=== PATIENT | male | born 1985 | race Caucasian/White ===

== ENCOUNTER 2023-09-05 06:17 | Day surgery (SDC) | payer OTHER ==
[2023-09-04 10:17] VITALS: BMI 31.5
[2023-09-05 07:41] LABS: #Eosinphils 0.1 thou/uL (0.0-0.7); #Monocytes 0.3 thou/uL (0.11-0.59); #Neutrophils 3.2 thou/uL (1.40-6.50); %Basophils 0.9 % (0.0-1.0); %Eosinophils 3.1 % (0.0-10.0); %Lymphocytes 20.8 % (21.0-51.0); %Monocytes 6.1 % (0.0-10.0); %Neutrophils 68.9 % (42.0-75.0); Hematocrit 40.9 % (42.0-52.0); Hemoglobin 12.1 g/dL (14.0-18.0); Mean Corpuscular HGB CONC 29.6 g/dL (32.0-36.0); Mean Corpuscular Hemoglobin 21.5 pg (27.0-31.0); Mean Corpuscular Volume 72.5 fl (78.0-98.0); Platelet Count 148 10x3/uL (130-400); RBC Distribution Width 20.8 % (11.5-14.5); Red Blood Cell (RBC) Count 5.64 mill/uL (4.70-6.10); White Blood Cell (WBC) Count 4.6 10x3/uL (4.8-10.8)
[2023-09-05] MEDS ORDERED: Lidocaine 1% MPF 2 ML VIAL ONE (08:12)
[2023-09-05] MEDS ORDERED: CEFAZOLIN 2 GM VIAL ONE ×2 (08:12→12:32)
[2023-09-05] MEDS ORDERED: Sodium Chloride 0.9% 100 ML ONE ×2 (08:12→12:33)
[2023-09-05 08:13] LABS: Anisocytosis SLIGHT = 6-15 cells HPF (0-5); CellaVision Operator ID LAB.MJL; Hypochromia SLIGHT = 6-15 cells HPF (0-5); Microcytosis SLIGHT = 6-15 cells HPF (0-5); Ovalocytes SLIGHT = 2-5 cells HPF (0-1); Platelet Adequacy Comment Platelets Normal; Poikilocytosis SLIGHT = 6-15 cells HPF (0-5); Polychromasia SLIGHT = 2-3 cells HPF (0-2)
[2023-09-05] MEDS ORDERED: EPINEPHrine 1 MG/ML VIAL ONE (08:54)
[2023-09-05] MEDS ORDERED: Thrombin 5000 UNITS/5 ML VIAL ONE (08:55)
[2023-09-05] MEDS ORDERED: Bupivacaine PF 0.5% 30 ML VIAL ONE (08:55)
[2023-09-05] MEDS ORDERED: Lidocaine 1% PF 5 ML VIAL ONE ×2 (08:57→09:10)
[2023-09-05] MEDS ORDERED: Ondansetron PF 4 MG/2 ML Vial ONE ×2 (08:57→09:10)
[2023-09-05] MEDS ORDERED: Dexamethasone 4 mg/ml Vial ONE ×2 (08:57→09:43)
[2023-09-05] MEDS ORDERED: PROPOFOL 20 ML ONE ×2 (08:57)
[2023-09-05] MEDS ORDERED: fentaNYL PF 100 MCG/2 ML SYRINGE ONE (08:57)
[2023-09-05] MEDS ORDERED: Rocuronium Bromide 10 MG/ML (10ML VIAL) ONE ×2 (08:59→09:10)
[2023-09-05] MEDS ORDERED: PROPOFOL 200 MG/20 ML VIAL ONE (09:10)
[2023-09-05] MEDS ORDERED: Dexamethasone 20 MG/5 ML VIAL ONE (09:10)
[2023-09-05] MEDS ORDERED: SUGAMMADEX SODIUM 200 MG/2 ML VIAL ONE (10:37)
[2023-09-05] MEDS ORDERED: HYDROmorphone 2 MG/ML VIAL ONE (10:43)
[2023-09-05] MEDS ORDERED: fentaNYL 50 mcg/mL 1 mL Vial ONE ×3 (11:24→11:47)
[2023-09-05] MEDS ORDERED: Tamsulosin HCl 0.4 MG CAP ONE (11:55)
[2023-09-05] MEDS ORDERED: diphenhydrAMINE 50 MG/ML VIAL ONE (13:12)
[2023-09-05] MEDS ORDERED: HYDROcodone/Acetaminophen 5/325 mg Tablet ONE (14:32)
== END 2023-09-05 14:45 | disposition home or self-care (01) ==
LOC: EDBD → SDC 06:17
PROVIDERS: ATTEND Neurological Surgery
PROC: 01NB0ZZ Release Lumbar Nerve, Open Approach (ICD-10-PCS; principal; 2023-09-05)
DX: M48.061 Spinal stenosis, lumbar region without neurogenic claudication (principal); J45.909 Unspecified asthma, uncomplicated; Z79.899 Other long term (current) drug therapy
CPT/HCPCS: 85025; J0171; J1100; J1170; J1200; J2405; J2704; J3010; J3490; S0020